=== PATIENT | male | born 1980 | race Caucasian/White ===

== ENCOUNTER 2017-09-02 13:32 | Observation (INO) ==
[2017-09-02] MEDS ORDERED: ASPIRIN 81 MG (BABY) CHEWABLE TABLET PO ONE (13:42)
[2017-09-02] MEDS ORDERED: Sodium Chloride 0.9% 1,000 ML PRIMARY IV ONE (13:42)
--- NOTE | 2017-09-02 13:44 | EKG ---
[address] [address] Measurements Intervals [place] Rate: 83 P: 56 IA: 149 QRS: 37 QRSD: 92 T: 60 QT: 361 QTc: 401 Interpretive Statements SINUS RHYTHM No previous ECG available for comparison No acute injury pattern Electronically Signed On 09-04-17 08:29:16 MDT by Dominik Rodgers MD [email or web address]
[2017-09-02 13:57] LABS: BASOPHILS # (AUTO) 0.06 10*3/UL; BASOPHILS % (AUTO) 0.8 % (0-1); EOSINOPHILS % (AUTO) 1.4 % (0-8); Hematocrit [HCT] 43.9 % (42.0-52.0); Hemoglobin [HGB] 15.5 g/dL (14.0-18.0); MEAN CORPUSCULAR HEMOGLOBIN 31.4 PG (27-31); MEAN CORPUSCULAR HGB CONC 35.3 g/dL (33-37); MONOCYTES # (AUTO) 0.59 10*3/UL (0.3-0.8); NEUTROPHILS # (AUTO) 4.57 10*3/UL; NEUTROPHILS % (AUTO) 62.2 % (50-80); RED BLOOD COUNT 4.93 10^6/uL (4.70-6.10)
[2017-09-02 13:59] LABS: PLATELET MORPHOLOGY COMMENT NORMAL MORPHOLOGY (NORM); RBC MORPHOLOGY COMMENT NORMAL MORPHOLOGY (NORM); WBC MORPHOLOGY COMMENT NORMAL MORPHOLOGY (NORM)
[2017-09-02 14:10] LABS: BLOOD UREA NITROGEN 11 mg/dL (7-22); SERUM ALBUMIN 4.5 g/dL (3.5-4.8)
--- NOTE | 2017-09-02 14:12 | DI ---
Exam: FILM CXR Single frontal AP view chest INDICATION: Chest pain COMPARISON: None FINDINGS: Low lung volumes are noted in addition to lordotic positioning the patient. The cardiomediastinal silhouette is within normal limits given low lung volumes and lordotic positioning of the patient. Lungs are clear. No pneumothorax. No pleural effusions. Bony elements are within normal limits for age. No acute osseous abnormality. IMPRESSION: No acute cardiopulmonary disease. Lungs are clear. Heart size within normal limits.
--- NOTE | 2017-09-02 15:23 | PDOC ---
Chest Pain HPI - General Chief Complaint: Chest Pain Stated Complaint: CHEST PAIN TIMES 2 WEEKS Date Seen by Provider: 09/02/17 Time Seen by Provider: 13:35 Source: Patient Exam Limitations: POSITIVE: No limitations Treatment Prior to Arrival: REPORTS: None Nurse's Notes Reviewed & Considered: Yes - History of Present Illness Initial Comments: The patient is a 36-year-old male who presents to the emergency department with complaints of chest pain. He states that for the past several weeks he has had some intermittent episodes of left upper chest pain that radiates through to his left shoulder. He states that it is not a sharp pain and states it is more like an ache. He states that these episodes of pain seemed to be occurring at random and not necessarily associated with activity. 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 He states that this morning he had an episode of more intense pain in the left upper chest that radiated through to the left shoulder and down into his left arm and wrist. He did not have any associated shortness of breath, diaphoresis , nausea or palpitation. He is not have any known history of heart disease. He states he has not been to the doctor for a long time and has not been diagnosed with hypertension, hyperlipidemia or diabetes although he states he's not been tested. He does chew tobacco. He is not aware of any family history of heart disease. He denies any other associated symptoms or complaints. He denies pain or swelling in his legs. He does not take any prescription medications. - Patient Home Medications Home Medications: Home Medications NK 09/02/17 - Patient Allergies Allergies/Adverse Reactions: Allergies 3 Allergy/AdvReac Type Severity Reaction Status Date / Time No Known Allergies Allergy Verified 09/02/17 13:56 Past Medical History - josé luis CHAMBERS History: Denies History Cardiovascular History: Denies History Respiratory History: Denies History Gastrointestinal History: Denies History Genitourinary History: Denies History Endocrine History: Denies History Musculoskeletal History: Denies History Neurological History: Denies History Blood Disorders: Denies History Psychiatric History: Denies History History of Sexually Transmitted Diseases: No Male Reproductive History: Denies History Cancer History: Denies History In Past Year Been Physically Harmed or Verbally Threatened: No History of MDRO: No History of Other Communicable Diseases: No Tobacco Use: Never Smoker In the Past 12 Months, Have Used or Abuse Any Substance: None Previous Surgical History: No Significant Family History: No pertinent family hx Past Medical History Reviewed: Reviewed - No Changes ROS - Limitations ROS Limitations: No Limitations Constitution: DENIES: Chills, Fever Cardiovascular: REPORTS: Chest Pain. DENIES: Heart Racing, Heart Palpitations, Blood Pressure Problem, Edema Respiratory: DENIES: Hurts To Breathe, Shortness Of Breath Neurological: REPORTS: Denies Neuro Symptoms Gastrointestinal: DENIES: Nausea Endocrine: REPORTS: Denies Symptoms Musculoskeletal: DENIES: Calf Pain, Lower Extremity Swelling Genitourinary: REPORTS: Denies Symptoms Eyes: REPORTS: Denies Symptoms ENT: REPORTS: Denies Symptoms Skin: DENIES: Rash Chest Pain PE - General Appearance General Appearance: REPORTS: Alert, Cooperative, No Acute Distress - HEENT HEENT: POSITIVE: Head Inspection Nml, Eyes Inspection Nml, Ears Inspection Nml, Nose Inspection Nml, Pharynx Inspect. Nml, PERRL, EOMI - Neck Neck: REPORTS: Normal Inspection. DENIES: JVD Present - Respiratory Respiratory: REPORTS: No Respiratory Distress, Breath Sounds Normal - Cardiovascular Cardiovascular: REPORTS: Regular Rate and Rhythm, Heart Sounds Normal Peripheral Pulses: Dorsalis-pedis (R): 2+, Dorsalis-pedis (L): 2+ - Abdomen Abdomen: Soft: (All Quadrants), Denies Tenderness: (All Quadrants), No Distention: (All Quadrants) - Skin Skin: REPORTS: Intact, No Rash - Extremities Extremity: Normal ROM: (All Extremities), Normal Inspection: (All Extremities) - Neurological / Psychological Neurological: POSITIVE: Oriented X3, Motor Normal, Sensation Normal Chest Pain Progress - Results Reviewed by me Xrays/CTs/US Reviewed by me: Yes Discussed with Radiologist: Yes Radiology Findings: Chest x-ray shows normal heart size and normal lung ross per radiologist. Lab Results Reviewed by Me: Yes CBC and BMP: 09/02/17 13:45 09/02/17 13:45 Lab Results:: Laboratory Results 3 09/02/17 09/02/17 09/02/17 13:45 13:45 13:45 WBC 7.35 RBC 4.93 Hgb 15.5 Hct 43.9 MCV 89.0 MCH 31.4 H MCHC 35.3 RDW Std Deviation 43.8 RDW Coeff of Myke 13.7 Plt Count 219 MPV 9.0 Immature Gran % (Auto) 0.4 Neut % (Auto) 62.2 Lymph % (Auto) 27.2 Mckinley % (Auto) 8.0 Eos % (Auto) 1.4 Baso % (Auto) 0.8 Immature Gran # (Auto) 0.03 Neut # (Auto) 4.57 Lymph # (Auto) 2.00 Mckinley # (Auto) 0.59 Eos # (Auto) 0.10 Baso # (Auto) 0.06 WBC Morphology Comment Normal morphology Plt Morphology Comment Normal morphology RBC Morph Comment Normal morphology D-Dimer 0.26 Sodium 141 Potassium 4.5 Chloride 105 Carbon Dioxide 23 Anion Gap 13 BUN 11 Creatinine 1.0 Estimated GFR > 60 BUN/Creatinine Ratio 11.00 Glucose 90 Calculated Osmolality 290.0 Calcium 8.8 Magnesium 1.8 Total Bilirubin 0.5 AST 31 ALT 44 Alkaline Phosphatase 53 CK-MB (CK-2) Troponin I C-Reactive Protein 0.6 Total Protein 7.5 Albumin 4.5 Globulin 3.0 Albumin/Globulin Ratio 1.50 TSH 3 09/02/17 09/02/17 13:45 13:45 WBC RBC Hgb Hct MCV MCH MCHC RDW Std Deviation RDW Coeff of Myke Plt Count MPV Immature Gran % (Auto) Neut % (Auto) Lymph % (Auto) Mckinley % (Auto) Eos % (Auto) Baso % (Auto) Immature Gran # (Auto) Neut # (Auto) Lymph # (Auto) Mckinley # (Auto) Eos # (Auto) Baso # (Auto) WBC Morphology Comment Plt Morphology Comment RBC Morph Comment D-Dimer Sodium Potassium Chloride Carbon Dioxide Anion Gap BUN Creatinine Estimated GFR BUN/Creatinine Ratio Glucose Calculated Osmolality Calcium Magnesium Total Bilirubin AST ALT Alkaline Phosphatase CK-MB (CK-2) 0.22 Troponin I < 0.012 C-Reactive Protein Total Protein Albumin Globulin Albumin/Globulin Ratio TSH 1.92 EKG Interpreted/Reviewed By Me:: Yes EKG Interpretation:: POSITIVE: Normal Sinus Rhythm, Normal Rate, Normal QRS, Normal ST/T - Patient's Progress MDM / ED Course: The patient's vital signs were all stable on arrival. His initial EKG shows normal sinus rhythm with no acute ST segment or T-wave changes. He was given aspirin per chest pain protocol. Chest x-ray showed normal heart size and normal lung ross. Blood work reveals a normal troponin and normal d-dimer. These findings were discussed with the patient. Decision was made to admit for further observation and cardiac workup. Dr. Bright has agreed to admit the patient and the patient is in agreement with this plan. - Consult Counseled: POSITIVE: Patient, RE: Lab Results, RE: Radiology Results, RE: DX, RE : Need for F/U Patient Care Time - Estimated PCT Patient Care Time (In Minutes): 30 Vital Signs - Recent Vital Signs Vital Signs: Vital Signs (Last 8 hours) Temp Pulse Pulse Resp BP Pulse Ox 09/02/17 13:34 84 09/02/17 13:33 97.7 F 93 16 135/82 96 - VS Reviewed Vital Signs Reviewed: Yes Discharge Clinical Impression: Chest pain Discharge Disposition: Admit to Observation Condition: Stable
[2017-09-02] MEDS ORDERED: CALCIUM CARBONATE 500 MG (TUMS) CHEWABLE TABLET PO PRN (15:34)
[2017-09-02] MEDS ORDERED: LIDOCAINE W/ SODIUM BICARB 0.5 ML SYR SUBD PRN (15:34)
--- NOTE | 2017-09-02 15:37 | PDOC ---
HPI - History of Present Illness Date of Service: 09/02/17 Time of Service: 16:00 Chief Complaint: Chest pain intermittent the last 2 weeks History of Present Illness: This is a 36 years old male with no significant past medical history who presented to the hospital with history of chest pain intermittently the last 2 weeks. The pain felt in the left side of the chest in a small area of the chest intermittent sometimes last hours he said, described more like an ache. Today he woke up with the pain being more intense than usual there is also some pain felt and stiffness in his left arm there is no shortness of breath, no nausea, no sweating. Because of the pain he came into the ER. The pain is unrelated to exertion he notices pain more like while he is driving. Evaluation in the ER was mainly negative and he was admitted for further investigation. Currently by the time I saw him he is denying complaint. There is no chest pain. Past Medical History Medical History: No significant past medical history Surgical History: History of lymph node removal when he was a child, doesn't know exactly the reason Family History: Reviewed an Not Pertinent Past Social History: He chews, doesn't drink and no drugs. 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 He said he stays in a camper in [place]. Tobacco Use: Never Smoker In the Past 12 Months, Have Used or Abuse Any of the Following Substance: None Alcohol Use: Occasionally Medication / Allergies Home Medications: Home Medications 3 Medication Instructions Recorded Confirmed Type NK 09/02/17 09/02/17 History Allergies/Adverse Reactions: Allergies 3 Allergy/AdvReac Type Severity Reaction Status Date / Time No Known Allergies Allergy Verified 09/02/17 13:56 Review of Systems - Review of Systems All Systems: Reviewed & No Additional Complaints Except as Stated Exam - Vitals Vital Signs: Vital Signs Temperature 97.7 F Temperature Source Temporal Artery Scan Pulse Rate [Pulse Oximeter 93 Right] Pulse Rate 84 Respiratory Rate 16 Blood Pressure [Left Arm] 135/82 Pulse Ox 96 Oxygen Delivery Method Room Air Height 6 ft 2 in Weight 244 lb 1.6 oz - General General Appearance: No Acute Distress, Cooperative - Head Head Exam: Normal Inspection, Atraumatic - Eye Eye Exam: POSITIVE: Normal Appearance - ENT ENT Exam: POSITIVE: Normal Exam - Neck Neck Exam: Normal Inspection - Respiratory Respiratory Exam: POSITIVE: Clear to Auscultation - Bilaterally - Cardiovascular Cardiovascular Exam: POSITIVE: RRR - GI/Abdominal GI/Abdominal Exam: POSITIVE: Normal Bowel Sounds, Non Tender, Non Distended, Soft, No Organomegaly - Rectal Rectal Exam: POSITIVE: Deferred - External Exam: POSITIVE: Deferred Exam: POSITIVE: Deferred - Extremities Extremities Exam: POSITIVE: Normal Inspection - Back Back Exam: POSITIVE: Normal Inspection - Neurological Neurological Exam: POSITIVE: Alert, Oriented x 3, CN II-XII Intact, No Facial Droop, Speech Intact / Clear, Moves All Extremities Equally - Psychiatric Psychiatric Exam: POSITIVE: Normal Affect - Integumentary Integumentary Exam: POSITIVE: Normal Color Results - Labs CBC and BMP: 09/02/17 13:45 09/02/17 13:45 - EKG Data -: EKG Interpreted by Me EKG Shows Normal: Sinus Rhythm - EKG Data EKG Interpretation: Normal EKG - Imaging Status: Report Reviewed by Me (Chest x-ray No acute cardiopulmonary disease. Lungs are clear. Heart size within normal limits.) Assessment and Plan - Patient Problems (1) Chest pain Current Visit: Yes Status: Acute Comment: This looked atypical chest pain, I think will repeat his enzymes and will order stress test for him. Will put him on aspirin. This could be cardiac versus noncardiac. Will check his lipids in the morning. Code(s): R07.9 - Chest pain, unspecified
[2017-09-03 02:17] LABS: CHOL/HDL RATIO 3.52 RATIO (0-4.0)
[2017-09-03] MEDS: ASPIRIN 325 MG EC TABLET PO SCH (10:17)
--- NOTE | 2017-09-03 11:39 | PDOC(PROG) ---
Date and Time of Service: 09/03/2017 9:50 AM Interval History: Subjective Patient to 90 symptoms this morning. He said he did have some chest pain last night but not today. No other symptoms. No palpitations. Objective : Data - Labs CBC and BMP: 09/02/17 13:45 09/02/17 13:45 Objective : Exam - General General Appearance: No Acute Distress, Cooperative - Head Head Exam: Normal Inspection - Eye Eye Exam: Normal Appearance - ENT ENT Exam: Normal Exam - Neck Neck Exam: Normal Inspection - Respiratory Respiratory Exam: Clear to Auscultation - Bilaterally - Cardiovascular Cardiovascular Exam: RRR - GI/Abdominal GI/Abdominal Exam: Normal Bowel Sounds, Non Tender, Non Distended, Soft, No Organomegaly - Rectal Rectal Exam: Deferred - External Exam: Deferred - Extremities Extremities Exam: Normal Inspection - Back Back Exam: Normal Inspection - Neurological Neurological Exam: Alert, Oriented x 3, CN II-XII Intact, No Facial Droop, Speech Intact / Clear, Moves All Extremities Equally - Psychiatric Psychiatric Exam: Normal Affect Assessment and Plan - Patient Problems (1) Chest pain Current Visit: Yes Status: Acute Comment: Enzymes are negative. His lipids levels are normal. We tried to do a stress test today however we had technical issues will do the resting images today and we'll try the exercise stress test tomorrow. Code(s): R07.9 - Chest pain, unspecified
--- NOTE | 2017-09-04 09:48 | STRESSTEST ---
[facility] Interpretive Statements This is a 36 YO male that presented with chest pain, atypical, associated with meals per patient history. Risk factors of tobacco use, negative family history, no HTN, DMII, or cholesterol problems. Ruled out for CT. resting EKG is NSR. Exercised in Mark protocol to 9:20 with HR at 173, max, 95% predicted. METS 10.5 and double product of 26,860. Hypertensive response to exercise. No significant ST depression on EKG tracings. good recovery in rest stages. Impression: negative maximal stress test on Mark protocol with hypertensive response to exercise. Plan: stress images today, await radiology read. exercise prescription. Resting images done yesterday. [email or web address]
[2017-09-04] MEDS: ASPIRIN 325 MG EC TABLET PO SCH (09:56)
[2017-09-04 12:24] VITALS: BP 101/63; RESP 16; TEMP 97.8
--- NOTE | 2017-09-04 14:43 | DI ---
2 DAY LAURI STRESS & REST MYOCARDIAL PERFUSION SCANS, 09/03/2017 8:55 AM : Clinical History: Chest pain Previous Exam: None at this facility. The patient was stressed by Dr. Nik Medina The standard Lauri protocol was used. Please see the Doctor's report. At the designated time, 36.5 mC i of 99Tc-sestimibi was injected IV. Stress gated tomograms were acquired within one hour of the inje ction. For the resting scans, 32.9 mCi was injected IV and resting gated tomograms were acquired in similar fashion. Stress scans were performed on September 04, 2017; the resting scans were performed on September 04, 2007. Quantitative and qualitative analyses were performed. Quantitative analysis was performed with the [facility] [id number] protocols. Very low dose limited CT scans of the chest are o btained through the level of the heart for attenuation correction of the gated stress and rest cardia c SPECT data. Non-attenuated and attenuated scans were processed for review, and the attenuated scans were used for final interpretation of this study. Review of the raw data images and quality assurance practice manager files indicate that these series of examinations ar e of good quality Stress and rest left ventricular chamber sizes are normal. Stress and rest LVEF are 68 % and 59 %, respectively. There is no evidence of ischemia. There is normal wall motion and normal ejection fractions. Transient ischemic dilatation ratio is 0.97, with a normal range up to 1.22 for patients str essed with the Lauri protocol and up to 1.33 for patients stressed with the Lexiscan protocol. The very low dose CT scans through the level of the heart show no coronary artery calcifications. The re is no adenopathy or evidence of lung nodules. Readin. No evidence of ischemia. 2. Normal ejection fraction and normal wall motion.
--- NOTE | 2017-09-04 15:47 | DCSUMMARY ---
Hospitalization Summary Admit Date: 09/02/2017 Discharge Date: 09/04/17 Primary Diagnosis:: GERD Hospital Course: This very pleasant 36-year-old male that presented with chest pain. He was admitted, ruled out for myocardial infarction, and a stress test was done. The stress test was negative and there was no evidence of coronary artery disease. During the hospital stay the patient noticed that he had noticed an association of this pain in chest with food intake. There were no fevers and no evidence other problems during the the hospital stay. The patient does chew tobacco, and we discussed using nicotine replacement products to try to quit chewing tobacco. The patient's cardiolyte mayco protocol stress test was negative. I recommended the patient try to exercise 5 days a week, 30 minutes each day. Today, no chest pain and no shortness of breath, no nausea or vomiting. He is ready to go home. Assessment and Plan: 1. As per discharge assessments noted 2. Disposition: discharge home 3. Condition on discharge, stable and improved. 4. Diet: regular diet 5. Activities: resume normal activities 6. Follow-Up: 1. recommend follow up in 7 days. 2. 7. Medications at the Time of Discharge: Home Medications 3 Medication Instructions Recorded Confirmed Type Pantoprazole Sodium Protonix 40 mg PO DAILY #60 tablet. 09/04/17 Rx Exam - Vitals Vital Signs: Vital Signs Temperature 97.8 F Temperature Source Temporal Artery Scan Pulse Rate [Apical] 47 Pulse Rate [Pulse Oximeter 75 Right] Pulse Rate 47 Respiratory Rate 16 Blood Pressure [Right Arm] 101/63 Blood Pressure [Left Arm] 119/72 Blood Pressure 114/77 Pulse Ox 94 Oxygen Delivery Method Room Air Height 6 ft 2 in Weight 240 lb 9.6 oz - General General Appearance: No Acute Distress, Cooperative - Eye Eye Exam: POSITIVE: No Scleral Icterus - ENT ENT Exam: POSITIVE: Mucous Membranes Moist - Respiratory Respiratory Exam: POSITIVE: Clear to Auscultation - Bilaterally, Breathing Non Labored - Cardiovascular Cardiovascular Exam: POSITIVE: RRR, No Murmur, No Clicks, No Gallops, No Rubs, No JVD - GI/Abdominal GI/Abdominal Exam: POSITIVE: Normal Bowel Sounds, Non Tender, Non Distended, Soft - Extremities Extremities Exam: POSITIVE: No Clubbing Present, No Edema Present, No Cyanosis Present - Neurological Neurological Exam: POSITIVE: Alert, Oriented x 3, Normal Gait, No Facial Droop, Speech Intact / Clear, Moves All Extremities Equally - Psychiatric Psychiatric Exam: POSITIVE: Normal Affect, Normal Mood Data Peritnent Studies: 09/02/17 09/02/17 09/02/17 13:45 13:45 13:45 WBC 7.35 Hgb 15.5 Hct 43.9 Plt Count 219 D-Dimer 0.26 Sodium 141 Potassium 4.5 Chloride 105 Carbon Dioxide 23 Anion Gap 13 BUN 11 Creatinine 1.0 Glucose 90 Calcium 8.8 Magnesium 1.8 Total Bilirubin 0.5 AST 31 ALT 44 Alkaline Phosphatase 53 CK-MB (CK-2) Troponin I C-Reactive Protein 0.6 Total Protein 7.5 Albumin 4.5 Globulin 3.0 Triglycerides Cholesterol LDL Cholesterol, Calc VLDL Cholesterol HDL Cholesterol Cholesterol/HDL Ratio TSH 09/02/17 09/02/17 09/02/17 13:45 13:45 20:14 WBC Hgb Hct Plt Count D-Dimer Sodium Potassium Chloride Carbon Dioxide Anion Gap BUN Creatinine Glucose Calcium Magnesium Total Bilirubin AST ALT Alkaline Phosphatase CK-MB (CK-2) 0.22 Troponin I < 0.012 < 0.012 C-Reactive Protein Total Protein Albumin Globulin Triglycerides Cholesterol LDL Cholesterol, Calc VLDL Cholesterol HDL Cholesterol Cholesterol/HDL Ratio TSH 1.92 09/03/17 09/03/17 02:00 02:00 WBC Hgb Hct Plt Count D-Dimer Sodium Potassium Chloride Carbon Dioxide Anion Gap BUN Creatinine Glucose Calcium Magnesium Total Bilirubin AST ALT Alkaline Phosphatase CK-MB (CK-2) Troponin I < 0.012 C-Reactive Protein Total Protein Albumin Globulin Triglycerides 135 Cholesterol 176 LDL Cholesterol, Calc 99.000 VLDL Cholesterol 27 HDL Cholesterol 50 Cholesterol/HDL Ratio 3.52 TSH Patient Problems - Patient Problem List (1) GERD (gastroesophageal reflux disease) Current Visit: Yes Status: Acute Code(s): K21.9 - Gastro-esophageal reflux disease without esophagitis Qualifiers: Esophagitis presence: esophagitis presence not specified Qualified Code(s) : K21.9 - Gastro-esophageal reflux disease without esophagitis Category: Medical (2) Chest pain Current Visit: Yes Status: Acute Code(s): R07.9 - Chest pain, unspecified Category: Medical
[2017-09-04 16:16] VITALS: O2SAT 93
== END 2017-09-04 16:15 | disposition home or self-care (01) ==
LOC: MED/SURG 13:32 → ER 13:32
PROVIDERS: ADMIT Internal Medicine; ATTEND Internal Medicine